=== PATIENT | male | born 1945 | race Caucasian/White ===

== ENCOUNTER 2018-06-08 09:01 | Inpatient (IN) | payer OTHER ==
[~2018-06-08] VITALS: Ht 177.8 cm; Wt 94.7 kg
[2018-06-08 14:06] VITALS: BP 97/61
[2018-06-08] MEDS ORDERED: NORVASC10 MG PO (15:14)
[2018-06-08] MEDS ORDERED: LIPITOR80 MG PO (15:14)
[2018-06-08] MEDS ORDERED: SYMBICORT60 INHALAT IH (15:15)
[2018-06-08] MEDS ORDERED: COREG12.5 M1 PO (15:15)
[2018-06-08] MEDS ORDERED: COZAAR100 MG PO (15:17)
[2018-06-08] MEDS ORDERED: NICODERM CQ1 EAC1 TD (15:17)
[2018-06-08] MEDS ORDERED: PROTONIX20 MG PO (15:18)
[2018-06-08] MEDS ORDERED: PREDNISONE20 MG PO (15:20)
[2018-06-08] MEDS ORDERED: SPIRIVA18 MCG IH (15:21)
[2018-06-08] MEDS ORDERED: SENOKOT S,PE1 TABLET PO (15:21)
[2018-06-08] MEDS ORDERED: EFFEXOR50 MG PO (15:22)
[2018-06-08] MEDS ORDERED: TYLENOL REGULA325 MG PO (15:24)
[2018-06-08] MEDS ORDERED: PROAIR RESPICL90 MCG IH (15:25)
[2018-06-08 16:11] VITALS: BP 146/64
[2018-06-09 05:58] VITALS: BP 132/86
[2018-06-09 06:39] LABS: BASOPHIL (%) 0.3 % (0-1); EOSINOPHIL (%) 1.1 % (0-5); EOSINOPHIL COUNT 0.2 K/uL (0-0.3); HEMATOCRIT 42.6 % (38.0-50.0); IMMATURE GRANULOCYTE (%) 1.6 % (0.0-0.7); LYMPHOCYTE (%) 20.2 % (15-42); LYMPHOCYTE COUNT 2.7 K/uL (1.0-2.8); MCH 32.6 PG (29.0-34.0); MCHC 35.2 G/DL (30.0-36.0); MCV 92.6 FL (86-99); MONOCYTE (%) 10.3 % (3-12); MONOCYTE COUNT 1.4 K/uL (0-0.8); NEUTROPHIL (%) 66.5 % (45-76); NEUTROPHIL COUNT 8.9 K/uL (1.8-6.4); PLATELET COUNT 264 K/uL (156-360); RBC DIS.WIDTH-CV 13.4 % (11.8-14.6); RBC DIS.WIDTH-SD 46.1 % (39-53); WHITE BLOOD COUNT 13.4 K/uL (4.1-10.2)
[2018-06-09 07:04] LABS: ALBUMIN 3.5 G/DL (3.2-4.8); ALKALINE PHOSPHATASE 69 IU/L (3-129); ALT (GPT) 26 IU/L (3-49); AST (GOT) 15 IU/L (2-34); CHLORIDE 100 MEQ/L (99-109); CREATININE 1.1 MG/DL (0.6-1.3); GFR ESTIMATE (CALCULATED) > 59 mL/min/ (58.99-99999); GLUCOSE 115 mg/dL (70-99); POTASSIUM 4.1 MEQ/L (3.7-5.4); SODIUM 135 MEQ/L (136-147); TOTAL BILIRUBIN 0.7 MG/DL (0.0-1.0); TOTAL PROTEIN 5.9 G/DL (6.4-8.3); UREA NITROGEN (BUN) 34 mg/dL (9-23)
[2018-06-09 15:08] VITALS: BP 115/70
[2018-06-10 04:52] VITALS: BP 135/79
[2018-06-10 15:02] VITALS: BP 125/73
[2018-06-11 05:58] VITALS: BP 168/88
[2018-06-11 06:04] VITALS: BP 157/70
[2018-06-11 15:05] VITALS: BP 134/80
[2018-06-12 05:57] VITALS: BP 182/80
[2018-06-12 07:13] LABS: CHLORIDE 103 MEQ/L (99-109); GFR ESTIMATE (CALCULATED) > 59 mL/min/ (58.99-99999); GLUCOSE 116 mg/dL (70-99); POTASSIUM 4.4 MEQ/L (3.7-5.4); SODIUM 139 MEQ/L (136-147); UREA NITROGEN (BUN) 28 mg/dL (9-23)
[2018-06-12 16:00] VITALS: BP 128/71
[2018-06-13 05:12] VITALS: BP 139/82
[2018-06-13 11:20] VITALS: BP 139/60
[2018-06-13 11:44] VITALS: BP 134/89
[2018-06-13 16:01] VITALS: BP 114/69
[2018-06-13] MEDS ORDERED: LIPITOR80 MG PO (16:34)
[2018-06-13] MEDS ORDERED: METOPROLOL SUCC25 MG PO (16:34)
[2018-06-13] MEDS ORDERED: SYMBICORT60 INHALAT IH (16:34)
[2018-06-13] MEDS ORDERED: SPIRIVA18 MCG IH (16:34)
[2018-06-13] MEDS ORDERED: NORVASC10 MG PO (16:34)
[2018-06-13] MEDS ORDERED: AMOX TR-K CLV1 EAC4 PO (16:34)
[2018-06-13] MEDS ORDERED: OMEPRAZOLE20 MG PO (16:34)
[2018-06-13] MEDS ORDERED: COZAAR100 MG PO (16:34)
[2018-06-13] MEDS ORDERED: SENOKOT S,PE1 TABLET PO (16:34)
[2018-06-13] MEDS ORDERED: PROAIR RESPICL90 MCG IH (16:34)
[2018-06-13] MEDS ORDERED: PREDNISONE10 MG PO (16:34)
[2018-06-13] MEDS ORDERED: NICODERM CQ1 EAC1 TD (16:34)
[2018-06-13] MEDS ORDERED: VITAMIN D-3 401 EACH PO (16:34)
== END 2018-06-13 17:07 | disposition left against medical advice (07) | DRG 57 ==
LOC: 3WEST 09:01
PROVIDERS: Family Medicine Sports Medicine; Physical Medicine & Rehabilitation Pain Medicine
PROC: 30233N1 Transfusion of Nonautologous Red Blood Cells into Peripheral Vein, Percutaneous Approach (ICD-10-PCS; principal; 2018-06-08)
DX: I69.198 Other sequelae of nontraumatic intracerebral hemorrhage (principal); R26.2 Difficulty in walking, not elsewhere classified; I69.119 Unspecified symptoms and signs involving cognitive functions following nontraumatic intracerebral hemorrhage; E87.1 Hypo-osmolality and hyponatremia; I10 Essential (primary) hypertension; I25.10 Atherosclerotic heart disease of native coronary artery without angina pectoris; J44.9 Chronic obstructive pulmonary disease, unspecified; K21.9 Gastro-esophageal reflux disease without esophagitis; Z86.11 Personal history of tuberculosis; I77.6 Arteritis, unspecified; E78.5 Hyperlipidemia, unspecified; K02.9 Dental caries, unspecified; F32.9 Major depressive disorder, single episode, unspecified; I25.2 Old myocardial infarction; Z87.891 Personal history of nicotine dependence
CPT/HCPCS: 80048; 80053; 85025; 85027; 92523 GN; 92610 GN; 94640; 97110 GO; J7512